=== PATIENT | male | born 1980 | race Caucasian/White ===

== ENCOUNTER → 2024-07-05 15:54 | Outpatient (REF) | payer BC, SELFPAY | LOC: HWRAD 15:54 | PROVIDERS: ATTENDING PHYSICIAN Chiropractor | DX: M54.2 Cervicalgia (principal); M53.2X7 Spinal instabilities, lumbosacral region; R10.2 Pelvic and perineal pain | CPT/HCPCS: 72050; 72110; 72170 ==